=== PATIENT | male | born 1970 | race Two or more races ===

== ENCOUNTER → 2025-02-17 | Outpatient (CLI) | payer MEDICAID, SELFPAY ==
--- NOTE | 2025-02-17 16:27 | XR_ITS ---
Examination: PA chest single view Technique: Upright PA chest single view Date and time: 9:30, 2024, 1640 hrs. Indications: Coughing beginning 2 weeks ago. Findings: Normal heart size No lobar pneumonia. The osseous structures are demineralized Impression: No active disease.
== END | disposition home or self-care (01) ==
PROVIDERS: PCP Family Medicine; Referring Provider Family Medicine; Visit Provider Family Medicine
DX: R05.8 Other specified cough (principal)
CPT/HCPCS: 71046

== ENCOUNTER → 2025-03-09 | Outpatient (CLI) | payer MEDICAID, SELFPAY ==
--- NOTE | 2025-03-09 13:30 | XR_ITS ---
Examination: CT chest, without intravenous contrast. Sagittal and coronal 2-D reconstructions. Exam date and time: March 09, 2025, 1350 hours INDICATIONS: Smoking history 20 years CTDI:vol (mGy) 11.1 DLP: (mGycm) 433 Technique: Multiple 3.0 mm axial sections of the chest to been obtained. Bone and lung density settings are obtained. Sagittal and coronal 2-D reconstructions have been obtained. Low dose protocols were performed. One or more of the following dose reduction techniques were used; automated exposure control, adjustment of the mA and/or KV according to patient size, use of iterative reconstruction technique. Findings: No thoracic aortic aneurysmal dilatation Pulmonary artery segments are not enlarged. No paratracheal or tracheobronchial bronchopulmonary adenopathy. No pneumonia or pulmonary edema pleural disease or pulmonary nodules No visualized liver or splenic lesion Contracted gallbladder No pancreatic or adrenal mass Mild osteopenia IMPRESSION: No mediastinal lymphadenopathy No pneumonia, pulmonary edema, pleural disease or pulmonary nodules
== END | disposition home or self-care (01) ==
PROVIDERS: PCP Family Medicine; Referring Provider Family Medicine; Visit Provider Family Medicine
DX: F17.210 Nicotine dependence, cigarettes, uncomplicated (principal)
CPT/HCPCS: 71271